=== PATIENT | male | born 1935 | race Caucasian/White ===

== ENCOUNTER 2018-09-21 12:48 | Emergency (ER) | payer MEDICARE ==
[2018-09-21 13:09] VITALS: RESP 18
[2018-09-21 13:59] LABS: Basophils % (A) 0 %; Eosinophils # (A) 0.3 k/uL (0-0.7); Eosinophils % (A) 3 %; HCT 38.8 % (39.0-53.0); HGB 13.1 gm/dL (13.0-17.5); Lymphocytes # (A) 1.7 k/uL (1.0-4.8); Lymphocytes % (A) 19 %; MCH 30.1 pg (25.0-35.0); MCHC 33.7 g/dL (31.0-37.0); MCV 89.3 fL (80.0-100.0); Mean Platelet Volume 8.4; Monocytes # (A) 0.7 k/uL (0-1.0); Monocytes % (A) 8 %; Neutrophils # (A) 6.2 k/uL (1.3-7.7); Neutrophils % (A) 68 %; Platelet Count 177 k/uL (150-450); RBC 4.35 m/uL (4.30-5.90); RDW 14.1 % (11.5-15.5); WBC 9.1 k/uL (3.8-10.6)
[2018-09-21 14:06] LABS: Albumin 4.2 g/dL (3.5-5.0); Calcium 9.2 mg/dL (8.4-10.2); Potassium 3.7 mmol/L (3.5-5.1); Total Bilirubin 0.9 mg/dL (0.2-1.3); Total Protein 7.5 g/dL (6.3-8.2)
--- NOTE | 2018-09-21 14:26 | XR ---
EXAMINATION TYPE: XR lumbar spine 2 or 3V DATE OF EXAM: 09/21/2018 CLINICAL HISTORY: Back pain TECHNIQUE: Frontal and lateral images of the lumbar spine are obtained. COMPARISON: None FINDINGS: There is a levoscoliosis of the lumbar spine and moderate multilevel degenerative disc dise ase with diffuse osseous demineralization seen. Intervertebral disc space narrowing is seen at multip le levels with facet arthropathy and small anterior osteophytes. Neural foraminal narrowing is suspec emily at L4-L5 and L5-S1. Additionally there is a compression deformity of the T12 vertebral body in qu estion rib fracture of approximately rib 11 on the left. IMPRESSION: 1. Age indeterminant compression deformity of the T12 vertebral body with vertebral body loss of appr oximately 20%. 2. Questionable acute nondisplaced rib fracture of a rib on the lateral view, likely the 11th rib on the left. This could be further evaluated with rib series x-rays. 3. Moderate degenerative disc disease of the lumbar spine, levoscoliosis, and diffuse osseous deminer alization.
[2018-09-21 15:41] LABS: Appearance,Urine Turbid (Clear); Bilirubin,Urine Negative (Negative); Blood,Urine Trace (Negative); Color,Urine Yellow; Glucose,Urine (UA) Negative (Negative); Ketones,Urine Negative (Negative); Leukocyte Esterase,Urine Large (Negative); Nitrite,Urine Negative (Negative); Protein,Urine 1+ (Negative); RBC,Urine 55 /hpf (0-5); Urobilinogen,Urine <2.0 mg/dL (<2.0)
[2018-09-21] MEDS ORDERED: cefTRIAXone IN SWFI 1,000 MG/10 ML SYRINGE IVP STA (15:50)
--- NOTE | 2018-09-21 16:01 | ED ---
General Adult HPI - General Chief complaint: Extremity Problem,Nontraumatic Stated complaint: RT HIP AND BACK PAIN Time Seen by Provider: 09/21/18 13:13 Source: patient Mode of arrival: wheelchair Limitations: no limitations - History of Present Illness Initial comments: Patient is a 82-year-old male presenting to the emergency Department with complaints of right low back pain radiating into his right upper leg x 3 days. Patient denies any falls or trauma. Patient states he has been trouble getting from a seated to a standing position. Patient usually walks with a walker and is having increasing pain walking. Patient denies any numbness, tingling, saddle paresthesias. Patient's daughter states he has had issues with his kidneys in the past and she is worried about a kidney infection. Patient is denying any urinary symptoms at this time. Patient denies any fever, chills. No other complaints at this time. - Related Data Home Medications Medication Instructions Recorded Confirmed Aspirin EC [Ecotrin Low Dose] 81 mg PO DAILY 09/21/18 09/21/18 Cyanocobalamin (Vitamin B-12) 1,000 mcg PO DAILY 09/21/18 09/21/18 [Vitamin B-12] Multivitamins, Thera [Multivitamin 1 tab PO DAILY 09/21/18 09/21/18 (formulary)] Previous Rx's Medication Instructions Recorded Cephalexin [Keflex] 500 mg PO Q6HR 7 Days #28 cap 09/21/18 Allergies Allergy/AdvReac Type Severity Reaction Status Date / Time No Known Allergies Allergy Verified 09/21/18 14:00 Review of Systems ROS Statement: Those systems with pertinent positive or pertinent negative responses have been documented in the HPI. ROS Other: All systems not noted in ROS Statement are negative. Past Medical History Past Medical History: Hypertension History of Any Multi-Drug Resistant Organisms: None Reported Past Surgical History: Appendectomy Past Psychological History: No Psychological Hx Reported Smoking Status: Never smoker Past Alcohol Use History: None Reported Past Drug Use History: None Reported General Exam - General Exam Comments Initial Comments: GENERAL: Well-appearing, well-nourished and in no acute distress. HEAD: Atraumatic, normocephalic. EYES: Pupils equal round and reactive to light, extraocular movements intact, sclera anicteric, conjunctiva are normal. ENT: TMs normal, nares patent, oropharynx clear without exudates. Moist mucous membranes. NECK: Normal range of motion, supple without lymphadenopathy or JVD. LUNGS: Breath sounds clear to auscultation bilaterally and equal. No wheezes rales or rhonchi. HEART: Regular rate and rhythm without murmurs, rubs or gallops. ABDOMEN: Soft, nontender, normoactive bowel sounds. No guarding, no rebound. No masses appreciated. : Deferred EXTREMITIES: Normal range of motion, no pitting or edema. No clubbing or cyanosis. Patient has tenderness in the right lumbar paraspinals. Patient has full trunk range of motion. Patient sensation is equal bilateral. Strength is 5 out of 5 in upper and lower extremities. NEUROLOGICAL: Cranial nerves II through XII grossly intact. Normal speech, normal gait. PSYCH: Normal mood, normal affect. SKIN: Warm, Dry, normal turgor, no rashes or lesions noted. Limitations: no limitations Course Vital Signs 09/21/18 13:05 Temperature 98.1 F Pulse Rate 78 Respiratory 18 Rate Blood Pressure 105/71 O2 Sat by Pulse 95 Oximetry Medical Decision Making - Medical Decision Making Patient is a 82-year-old male with complaints of right sided low back pain radiating into his right upper leg. Patient denies any trauma to the back of the hip. On exam patient has mild tenderness to the right lumbar paraspinals. Patient's vital signs are stable, afebrile. X-ray of the lumbar spine reveal age indeterminate compression deformity of the T12 vertebral body with loss of approximately 20%. There is a questionable acute rib fracture on the left 11th rib. Patient's daughter states patient has history of rib fractures on the left side a few months ago. CBC shows no signs of infection. BUN/creatinine are slightly elevated at 31 and 2.06. UA shows 1+ protein, trace amount of blood, greater than 182 WBCs. Patient will be given a gram of Rocephin before discharge. Patient will be sent home with Keflex 7 days. It was discussed with patient has back pain may be related to his UTI and/or right-sided sciatica. Patient will follow up with his PCP and 3-4 days. Case discussed with Dr. Robertson. Return parameters were discussed with the patient and his daughter and they both verbalize understanding. Patient stable for discharge. - Lab Data Result diagrams: 09/21/18 13:35 09/21/18 13:35 Lab Results 09/21/18 09/21/18 09/21/18 Range/Units 13:35 13:35 15:22 WBC 9.1 (3.8-10.6) k/uL RBC 4.35 (4.30-5.90) m/uL Hgb 13.1 (13.0-17.5) gm/dL Hct 38.8 L (39.0-53.0) % MCV 89.3 (80.0-100.0) fL MCH 30.1 (25.0-35.0) pg MCHC 33.7 (31.0-37.0) g/dL RDW 14.1 (11.5-15.5) % Plt Count 177 (150-450) k/uL Neutrophils % 68 % Lymphocytes % 19 % Monocytes % 8 % Eosinophils % 3 % Basophils % 0 % Neutrophils # 6.2 (1.3-7.7) k/uL Lymphocytes # 1.7 (1.0-4.8) k/uL Monocytes # 0.7 (0-1.0) k/uL Eosinophils # 0.3 (0-0.7) k/uL Basophils # 0.0 (0-0.2) k/uL Sodium 140 (137-145) mmol/L Potassium 3.7 (3.5-5.1) mmol/L Chloride 107 (98-107) mmol/L Carbon Dioxide 22 (22-30) mmol/L Anion Gap 11 mmol/L BUN 31 H (9-20) mg/dL Creatinine 2.06 H (0.66-1.25) mg/dL Est GFR (CKD-EPI)AfAm 34 (>60 ml/min/1.73 sqM) Est GFR (CKD-EPI)NonAf 29 (>60 ml/min/1.73 sqM) Glucose 126 H (74-99) mg/dL Calcium 9.2 (8.4-10.2) mg/dL Total Bilirubin 0.9 (0.2-1.3) mg/dL AST 25 (17-59) U/L ALT 21 (21-72) U/L Alkaline Phosphatase 43 (38-126) U/L Total Protein 7.5 (6.3-8.2) g/dL Albumin 4.2 (3.5-5.0) g/dL Urine Color Yellow Urine Appearance Turbid (Clear) Urine pH 6.0 (5.0-8.0) Ur Specific [place] 1.020 (1.001-1.035) Urine Protein 1+ H (Negative) Urine Glucose (UA) Negative (Negative) Urine Ketones Negative (Negative) Urine Blood Trace H (Negative) Urine Nitrite Negative (Negative) Urine Bilirubin Negative (Negative) Urine Urobilinogen <2.0 (<2.0) mg/dL Ur Leukocyte Esterase Large H (Negative) Urine RBC 55 H (0-5) /hpf Urine WBC >182 H (0-5) /hpf Urine WBC Clumps Occasional H (None) /hpf Disposition Clinical Impression: Low back pain, Urinary tract infection Disposition: HOME SELF-CARE Condition: Stable Instructions (If sedation given, give patient instructions): Urinary Tract Infection in Men (ED) Additional Instructions: Please return to the Emergency Department if symptoms worsen or any other concerns. Follow up with PCP if symptoms continue for 3-4 days. Prescriptions: Cephalexin [Keflex] 500 mg PO Q6HR 7 Days #28 cap Is patient prescribed a controlled substance at d/c from ED?: No Referrals: Maia Riley DO [Primary Care Provider] - 1-2 days
[2018-09-21 16:31] VITALS: BP 120/90; PULSE 65; TEMP 97.9
== END 2018-09-21 16:31 | disposition home or self-care (01) ==
LOC: EC 12:48
DX: N39.0 Urinary tract infection, site not specified (principal); M48.8X4 Other specified spondylopathies, thoracic region; R79.89 Other specified abnormal findings of blood chemistry; M54.5 Low back pain; M79.651 Pain in right thigh; Z87.81 Personal history of (healed) traumatic fracture
CPT/HCPCS: 36415; 80053; 85025; 81001; 87086; 72100; 99283; 96374; J0696

== ENCOUNTER 2018-09-27 01:23 | Inpatient (IN) | payer MEDICARE ==
[2018-09-27] MEDS ORDERED: MORPHINE SULFATE 4 MG/ML SYRINGE IV STA (01:53)
[2018-09-27 02:32] LABS: Basophils % (A) 0 %; Eosinophils # (A) 0.2 k/uL (0-0.7); Eosinophils % (A) 2 %; HCT 37.3 % (39.0-53.0); HGB 12.5 gm/dL (13.0-17.5); Lymphocytes # (A) 1.4 k/uL (1.0-4.8); Lymphocytes % (A) 12 %; MCH 30.5 pg (25.0-35.0); MCHC 33.6 g/dL (31.0-37.0); MCV 90.7 fL (80.0-100.0); Mean Platelet Volume 8.2; Monocytes # (A) 0.6 k/uL (0-1.0); Monocytes % (A) 5 %; Neutrophils # (A) 9.9 k/uL (1.3-7.7); Neutrophils % (A) 80 %; Platelet Count 165 k/uL (150-450); RBC 4.11 m/uL (4.30-5.90); WBC 12.4 k/uL (3.8-10.6)
[2018-09-27 02:39] LABS: C Reactive Protein 24.6 mg/L (<10.0); Potassium 3.8 mmol/L (3.5-5.1); Total Bilirubin 0.7 mg/dL (0.2-1.3); Total Protein 7.3 g/dL (6.3-8.2)
--- NOTE | 2018-09-27 02:41 | XR ---
EXAM: XR Right Femur, 2 Views CLINICAL HISTORY: ITS.REASON XR Reason: Pain TECHNIQUE: Frontal and lateral views of the right femur. COMPARISON: No relevant prior studies available. FINDINGS: Bones/joints: Osteopenia. No fracture. No dislocation. Soft tissues: Unremarkable. IMPRESSION: No fracture.
--- NOTE | 2018-09-27 02:41 | XR ---
EXAM: XR Pelvis, 1 or 2 Views CLINICAL HISTORY: ITS.REASON XR Reason: Pain TECHNIQUE: Frontal view of the pelvis and right hip. COMPARISON: No relevant prior studies available. FINDINGS: Bones/joints: Osteopenia. No acute fracture. No dislocation. Soft tissues: Unremarkable. IMPRESSION: No fracture
[2018-09-27] MEDS ORDERED: NALOXONE 0.4 MG/ML 1 ML VIAL IV PRN (04:02)
[2018-09-27] MEDS ORDERED: ACETAMINOPHEN TAB 325 MG TAB PO PRN (04:02)
--- NOTE | 2018-09-27 04:07 | ED ---
Lower Extremity Injury HPI - General Chief Complaint: Extremity Injury, Lower Stated Complaint: fall,hip pain Time Seen by Provider: 09/27/18 01:26 Source: EMS Mode of arrival: EMS Limitations: physical limitation - History of Present Illness Initial Comments: This patient is an 82-year-old man who presents to be evaluate for right low back pain radiating to his leg, especially the hip area. The patient states that he has had a few falls over the past week or so. He states that now over the past day he has not been able to walk. He denies change in bladder or bowel function. No saddle anesthesia. MD Complaint: hip injury -: hour(s) Injury: Hip: Right Type of Injury: blunt Place: home Severity: severe Improves With: nothing Worsens With: weight bearing Context: fall Associated Symptoms: able to partially bear weight - Related Data Home Medications Medication Instructions Recorded Confirmed Aspirin EC [Ecotrin Low Dose] 81 mg PO DAILY 09/21/18 09/21/18 Cyanocobalamin (Vitamin B-12) 1,000 mcg PO DAILY 09/21/18 09/21/18 [Vitamin B-12] Multivitamins, Thera [Multivitamin 1 tab PO DAILY 09/21/18 09/21/18 (formulary)] Previous Rx's Medication Instructions Recorded Cephalexin [Keflex] 500 mg PO Q6HR 7 Days #28 cap 09/21/18 Allergies Allergy/AdvReac Type Severity Reaction Status Date / Time No Known Allergies Allergy Verified 09/21/18 14:00 Review of Systems ROS Statement: Those systems with pertinent positive or pertinent negative responses have been documented in the HPI. ROS Other: All systems not noted in ROS Statement are negative. Constitutional: Reports: weakness. Denies: fever, chills Respiratory: Denies: cough, dyspnea Cardiovascular: Denies: chest pain, palpitations, edema Gastrointestinal: Denies: abdominal pain, vomiting, diarrhea Genitourinary: Denies: dysuria, hematuria Musculoskeletal: Reports: as per HPI, back pain, arthralgia Skin: Denies: rash Neurological: Reports: weakness. Denies: headache, numbness, paresthesias Past Medical History Past Medical History: Hypertension History of Any Multi-Drug Resistant Organisms: None Reported Past Surgical History: Appendectomy Past Psychological History: No Psychological Hx Reported Smoking Status: Never smoker Past Alcohol Use History: None Reported Past Drug Use History: None Reported - Past Family History Father Family Medical History: No Reported History Additional Family Medical History / Comment(s): young in 50's General Exam Limitations: physical limitation General appearance: alert, in no apparent distress Head exam: Present: atraumatic, normocephalic Eye exam: Present: normal appearance. Absent: scleral icterus, conjunctival injection Respiratory exam: Present: normal lung sounds bilaterally. Absent: respiratory distress, wheezes, rales, rhonchi, stridor Cardiovascular Exam: Present: regular rate, normal rhythm, normal heart sounds GI/Abdominal exam: Present: soft. Absent: distended, tenderness, guarding, rebound, rigid, mass Extremities exam: Present: normal inspection, normal capillary refill. Absent: tenderness, pedal edema, joint swelling, calf tenderness Back exam: Present: normal inspection, paraspinal tenderness. Absent: CVA tenderness (R), CVA tenderness (L), vertebral tenderness Neurological exam: Present: alert. Absent: motor sensory deficit Skin exam: Present: warm, dry, intact, normal color. Absent: rash Course Vital Signs 09/27/18 09/27/18 01:24 04:24 Temperature 97.5 F L 97.9 F Pulse Rate 74 73 Respiratory 18 18 Rate Blood Pressure 162/99 115/70 O2 Sat by Pulse 96 97 Oximetry Medical Decision Making - Medical Decision Making This patient is an 82-year-old man with a right hip and leg pain most consistent with radiculopathy. He has had moderate relief with analgesia but not able to ambulate. In addition, there are concerns about his home situation. Patient be admitted for possible placement. As well as spinal evaluation. - Lab Data Result diagrams: 09/27/18 02:20 09/27/18 02:20 Lab Results 09/27/18 09/27/18 Range/Units 02:20 02:20 WBC 12.4 H (3.8-10.6) k/uL RBC 4.11 L (4.30-5.90) m/uL Hgb 12.5 L (13.0-17.5) gm/dL Hct 37.3 L (39.0-53.0) % MCV 90.7 (80.0-100.0) fL MCH 30.5 (25.0-35.0) pg MCHC 33.6 (31.0-37.0) g/dL RDW 16.0 H (11.5-15.5) % Plt Count 165 (150-450) k/uL Neutrophils % 80 % Lymphocytes % 12 % Monocytes % 5 % Eosinophils % 2 % Basophils % 0 % Neutrophils # 9.9 H (1.3-7.7) k/uL Lymphocytes # 1.4 (1.0-4.8) k/uL Monocytes # 0.6 (0-1.0) k/uL Eosinophils # 0.2 (0-0.7) k/uL Basophils # 0.0 (0-0.2) k/uL Sodium 142 (137-145) mmol/L Potassium 3.8 (3.5-5.1) mmol/L Chloride 109 H (98-107) mmol/L Carbon Dioxide 23 (22-30) mmol/L Anion Gap 10 mmol/L BUN 24 H (9-20) mg/dL Creatinine 1.42 H (0.66-1.25) mg/dL Est GFR (CKD-EPI)AfAm 53 (>60 ml/min/1.73 sqM) Est GFR (CKD-EPI)NonAf 46 (>60 ml/min/1.73 sqM) Glucose 93 (74-99) mg/dL Calcium 9.0 (8.4-10.2) mg/dL Total Bilirubin 0.7 (0.2-1.3) mg/dL AST 35 (17-59) U/L ALT 23 (21-72) U/L Alkaline Phosphatase 46 (38-126) U/L C-Reactive Protein 24.6 H (<10.0) mg/L Total Protein 7.3 (6.3-8.2) g/dL Albumin 4.0 (3.5-5.0) g/dL Disposition Clinical Impression: Lumbar radiculopathy Disposition: ADMITTED IP TO THIS HOSP Condition: Fair
[2018-09-27] MEDS: SODIUM CHLORIDE 0.9% 1,000 ML IV SCH (04:54)
[2018-09-27] MEDS: HYDROcodone/APAP 5-325MG 1 EACH TAB PO PRN ×2 (05:21→17:39)
[2018-09-27] MEDS: MULTIVITAMINS, THERA 1 EACH TAB PO SCH (10:22)
[2018-09-27] MEDS: ASPIRIN 81 MG PO SCH (10:23)
[2018-09-27] MEDS: CYANOCOBALAMIN 500 MCG TAB PO SCH (10:23)
[2018-09-27 15:06] VITALS: BMI 21.6
[2018-09-27] MEDS ORDERED: LEVOFLOXACIN 750MG-D5W PMX 750 MG in DEXTROSE/WATER 1 150ML.BAG IVPB SCH (16:00)
--- NOTE | 2018-09-27 21:21 | P.HPIM ---
History of Present Illness H&P Date: 09/27/18 Atif Moreno is an 82 yo M with PMH significant for spinal stenosis, osteoporosis, recurrent falls, CKD3, prostate cancer s/p TURP who presented to [facility] ED after a fall at home. He states he was transferring from his walker when he lost balance and fell backward, landing on his pelvis and R hip. He had to crawl for a few mins to his alert device and then was able to contact EMS. In the ED, vitals stable, leukocytosis to 12.4 with CRP 24 and Cr 1.5. Pt notes that at baseline he lives alone in a trailer, his is currently at [facility]. Daughters visit and he showers at a daughter's house approx once per week. He was being treated for a UTI with keflex outpatient. He denies fevers, chills, dysuria. Was seen in the ED for a fall at home just a few weeks ago. Review of Systems All systems: negative Constitutional: Reports lethargy, Reports malaise, Reports weakness, Denies chills, Denies fever Eyes: denies blurred vision, denies pain Ears, nose, mouth and throat: Denies headache, Denies sore throat Cardiovascular: Denies chest pain, Denies shortness of breath Respiratory: Denies cough Gastrointestinal: Denies abdominal pain, Denies diarrhea, Denies nausea, Denies vomiting Musculoskeletal: Reports frequent falls, Reports gait dysfunction, Reports muscle weakness, Denies myalgias Integumentary: Denies pruritus, Denies rash Neurological: Denies numbness, Denies weakness Psychiatric: Denies anxiety, Denies depression Endocrine: Reports fatigue, Denies weight change Past Medical History Past Medical History: Hypertension Additional Past Medical History / Comment(s): Falls, liu lateral broken ribs History of Any Multi-Drug Resistant Organisms: None Reported Past Surgical History: Appendectomy Past Anesthesia/Blood Transfusion Reactions: No Reported Reaction Past Psychological History: No Psychological Hx Reported Smoking Status: Never smoker Past Alcohol Use History: None Reported Past Drug Use History: None Reported - Past Family History Father Family Medical History: No Reported History Additional Family Medical History / Comment(s): young in 50's Medications and Allergies Home Medications Medication Instructions Recorded Confirmed Type Aspirin EC [Ecotrin Low Dose] 81 mg PO DAILY 09/21/18 09/27/18 History Cephalexin [Keflex] 500 mg PO Q6HR 7 Days #28 cap 09/21/18 09/27/18 Rx Cyanocobalamin (Vitamin B-12) 1,000 mcg PO DAILY 09/21/18 09/27/18 History [Vitamin B-12] Multivitamins, Thera [Multivitamin 1 tab PO DAILY 09/21/18 09/27/18 History (formulary)] Metoprolol Tartrate [Lopressor] 12.5 mg PO HS 09/27/18 09/27/18 History Tamsulosin HCl [Flomax] 0.4 mg PO DAILY 09/27/18 09/27/18 History Allergies Allergy/AdvReac Type Severity Reaction Status Date / Time No Known Allergies Allergy Verified 09/27/18 07:32 Physical Exam Vitals: Vital Signs Temp Pulse Pulse Resp BP BP Pulse Ox 09/27/18 15:00 98 F 86 16 99/65 93 L 09/27/18 07:00 98 F 78 14 96/66 95 09/27/18 05:19 97.6 F 73 16 125/79 93 L 09/27/18 04:24 97.9 F 73 18 115/70 97 09/27/18 01:24 97.5 F L 74 18 162/99 96 Intake and Output 09/27/18 09/27/18 09/27/18 06:59 14:59 22:59 Intake Total 100 694 Balance 100 694 Intake: Oral 100 694 Other: Weight 55.338 kg 55.338 kg General: thin, cachectic, NAD. Vitals reviewed Eyes: PERRL, EOMI, conjunctiva normal HENT: normocephalic, mucus membranes moist Neck: supple, no JVD Lungs: normal respiratory effort, no wheezes or rales CV: Regular rate and rhythm, no murmur. Peripheral pulses 2+ Abdomen: soft, nondistended, no organomegaly Lymph: no cervical or axillary LAD Skin: warm and dry. Bruising around bilateral arms Neuro: A&Ox3, normal mood and affect Results CBC & Chem 7: 09/27/18 02:20 09/27/18 02:20 Labs: Abnormal Lab Results - Last 24 Hours (Table) 09/27/18 09/27/18 Range/Units 02:20 02:20 WBC 12.4 H (3.8-10.6) k/uL RBC 4.11 L (4.30-5.90) m/uL Hgb 12.5 L (13.0-17.5) gm/dL Hct 37.3 L (39.0-53.0) % RDW 16.0 H (11.5-15.5) % Neutrophils # 9.9 H (1.3-7.7) k/uL Chloride 109 H (98-107) mmol/L BUN 24 H (9-20) mg/dL Creatinine 1.42 H (0.66-1.25) mg/dL C-Reactive Protein 24.6 H (<10.0) mg/L Thrombosis Risk Factor Assmnt - Choose All That Apply Each Risk Factor Represents 2 Points: Age 61-74 years Thrombosis Risk Factor Assessment Total Risk Factor Score: 2 Thrombosis Risk Factor Assessment Level: Low Risk Assessment and Plan (1) Sepsis due to urinary tract infection Current Visit: Yes Status: Acute Code(s): A41.9 - SEPSIS, UNSPECIFIED ORGANISM; N39.0 - URINARY TRACT INFECTION, SITE NOT SPECIFIED SNOMED Code(s): 540421171 (2) Protein-calorie malnutrition, moderate Current Visit: Yes Status: Acute Code(s): E44.0 - MODERATE PROTEIN-CALORIE MALNUTRITION SNOMED Code(s): 958066889 (3) Frequent falls Current Visit: Yes Status: Acute Code(s): R29.6 - REPEATED FALLS SNOMED Code(s): 197642998 (4) S/P TURP (transurethral resection of prostate) Current Visit: Yes Status: Acute Code(s): Z90.79 - ACQUIRED ABSENCE OF OTHER GENITAL ORGAN(S) SNOMED Code(s): 110528136 (5) Lumbar radiculopathy Current Visit: Yes Status: Acute Code(s): M54.16 - RADICULOPATHY, LUMBAR REGION SNOMED Code(s): 848042152 (6) Low back pain Current Visit: No Status: Acute Code(s): M54.5 - LOW BACK PAIN SNOMED Code(s): 433863392 Plan: 1. Sepsis due to UTI. SIRS 2/4 positive on admission with failed outpatient treatment of UTI with keflex. Outpatient urine culture positive for pseudomonas. Blood and urine cultures. Start levaquin. Daily labs 2. Frequent falls. Lumbar radiculopathy. PT and OT to eval. Case management to assist with discharge planning 3. Protein calorie malnutritions. Ensure 4. S/p TURP. Continue flomax DVT prophylaxis lovenox
[2018-09-27] MEDS ORDERED: ONDANSETRON 4 MG/2 ML VIAL IVP PRN (21:59)
[2018-09-28] MEDS: SODIUM CHLORIDE 0.9% 1,000 ML IV SCH (05:16)
[2018-09-28] MEDS: ENOXAPARIN 40 MG/0.4 ML SYRINGE SQ SCH (10:18)
[2018-09-28] MEDS: TAMSULOSIN 0.4 MG CAP.ER.24H PO SCH (10:20)
[2018-09-28] MEDS: ASPIRIN 81 MG PO SCH (10:20)
[2018-09-28] MEDS: MULTIVITAMINS, THERA 1 EACH TAB PO SCH (10:20)
[2018-09-28] MEDS: CYANOCOBALAMIN 500 MCG TAB PO SCH (10:21)
--- NOTE | 2018-09-28 13:07 | P.PN ---
Subjective Progress Note Date: 09/28/18 Atif Moreno is an 82 yo M with PMH significant for spinal stenosis, osteoporosis, recurrent falls, CKD3, prostate cancer s/p TURP who presented to [facility] ED after a fall at home. He states he was transferring from his walker when he lost balance and fell backward, landing on his pelvis and R hip. He had to crawl for a few mins to his alert device and then was able to contact EMS. In the ED, vitals stable, leukocytosis to 12.4 with CRP 24 and Cr 1.5. Pt notes that at baseline he lives alone in a trailer, his is currently at [facility]. Daughters visit and he showers at a daughter's house approx once per week. He was being treated for a UTI with keflex outpatient. He denies fevers, chills, dysuria. Was seen in the ED for a fall at home just a few weeks ago. 09/28/2018 maintained on IV antibiotics of Levaquin. afebrile, preliminary urine and blood cultures pending. Voided 100ml, post void residual 360. Labs pending. Evaluated by PT and subacute rehab recommended at discharge.VSS, maintaining O2 sats in the mid 90s on room air. Denies any chest pain, palpitations or increased shortness of breath. Denies any lightheadedness, dizziness or focal deficits. Objective - Vital Signs Vital signs: Vital Signs Temp 98.5 F 09/28/18 07:00 Pulse 69 09/28/18 08:30 Resp 16 09/28/18 08:30 BP 123/71 09/28/18 07:00 Pulse Ox 94 L 09/28/18 07:00 Intake & Output 09/27/18 09/28/18 09/28/18 18:59 06:59 18:59 Intake Total 694 440 236 Output Total 250 Balance 694 190 236 Weight 55.338 kg Intake: Intake, IV Titration 240 Amount Sodium Chloride 0.9% 1, 240 000 ml @ 20 mls/hr IV . Q24H [facility] Rx#:[id number] Oral 694 200 236 Output: Urine 250 Other: Voiding Method Urinal Urinal Diaper Diaper # Voids 2 1 - Exam General: thin, cachectic, NAD. Eyes: PERRL, EOMI, conjunctiva normal. HENT: normocephalic, mucus membranes moist Neck: supple, no JVD Lungs: normal respiratory effort, no wheezes or rales, no rhonchi CV: Regular rate and rhythm, no murmur. Peripheral pulses 2+ Abdomen: soft, nondistended, no organomegaly Lymph: no cervical or axillary LAD Skin: warm and dry. Bruising around bilateral arms Neuro: A&Ox3, normal mood and affect - Labs CBC & Chem 7: 09/27/18 02:20 09/27/18 02:20 Labs: Microbiology - Last 24 Hours (Table) 09/27/18 Unknown Urine Culture - Preliminary Urine,Voided Assessment and Plan Assessment: (1) Sepsis due to urinary tract infection Current Visit: Yes Status: Acute Code(s): A41.9 - SEPSIS, UNSPECIFIED ORGANISM; N39.0 - URINARY TRACT INFECTION, SITE NOT SPECIFIED SNOMED Code(s): 525268770 (2) Protein-calorie malnutrition, moderate Current Visit: Yes Status: Acute Code(s): E44.0 - MODERATE PROTEIN-CALORIE MALNUTRITION SNOMED Code(s): 549423127 (3) Frequent falls Current Visit: Yes Status: Acute Code(s): R29.6 - REPEATED FALLS SNOMED Code(s): 014377677 (4) S/P TURP (transurethral resection of prostate) Current Visit: Yes Status: Acute Code(s): Z90.79 - ACQUIRED ABSENCE OF OTHER GENITAL ORGAN(S) SNOMED Code(s): 862419777 (5) Lumbar radiculopathy Current Visit: Yes Status: Acute Code(s): M54.16 - RADICULOPATHY, LUMBAR REGION SNOMED Code(s): 555330193 (6) Low back pain Current Visit: No Status: Acute Code(s): M54.5 - LOW BACK PAIN SNOMED Code(s): 262496366 (7 urinary retention possibly acute on chronic. Outpatient urology follow-up recommended Plan: Continue on current medication regime ,monitoring and symptomatic treatment. Flomax added to med regime, post void residuals after each void, straight cath ordered. Labs pending. Maintained on IV antibiotics of Levaquin. Continue following cultures-blood in urine culture results pending. Change from observation to inpatient. Subacute rehab. being discussed for discharge with both patient and daughters. The impression and plan of care has been dictated as directed. : I performed a history and examination of this patient, discussed the same with the dictator. I agree with the dictator's note ,documented as a scribe. Any additional findings or plans will be noted.
[2018-09-28] MEDS ORDERED: TAMSULOSIN 0.4 MG CAP.ER.24H PO SCH (13:15)
[2018-09-28 13:38] LABS: Calcium 8.7 mg/dL (8.4-10.2); Potassium 4.6 mmol/L (3.5-5.1)
[2018-09-28 13:39] LABS: HCT 34.3 % (39.0-53.0); HGB 11.4 gm/dL (13.0-17.5); MCH 30.7 pg (25.0-35.0); MCHC 33.3 g/dL (31.0-37.0); MCV 92.4 fL (80.0-100.0); Mean Platelet Volume 8.1; Platelet Count 160 k/uL (150-450); RBC 3.71 m/uL (4.30-5.90); RDW 14.4 % (11.5-15.5); WBC 9.4 k/uL (3.8-10.6)
--- NOTE | 2018-09-28 14:59 | P.GSCN ---
History of Present Illness Consult date: 09/28/18 Reason for Consult: Urine retention History of present illness: This is an 82-year-old gentleman who came in the hospital because of falling. Because of the fall is due to aging, imbalance, osteoporosis and spinal stenosis. Apparently he has had some difficulty urinating and he was bladder scanned for 365 mL post void. Nursing staff attempted to catheterize him and were unable to do so. He is a patient of . He apparently has BPH. Apparently had a TURP over a year ago. He has been having some problems urinating the last month however. He states that he has had frequent urination hesitancy and slowing stream. Whether he has a bladder neck contracture or urethral strictures indeterminate. The pathology of the biopsy is also unknown to me. In see the patient and absence . Review of Systems - Constitutional Reports weakness - Genitourinary Reports as per HPI - Musculoskeletal Reports frequent falls, Reports gait dysfunction, Reports low back pain Past Medical History Past Medical History: Hypertension Additional Past Medical History / Comment(s): Falls, liu lateral broken ribs History of Any Multi-Drug Resistant Organisms: None Reported Past Surgical History: Appendectomy Past Anesthesia/Blood Transfusion Reactions: No Reported Reaction Past Psychological History: No Psychological Hx Reported Smoking Status: Never smoker Past Alcohol Use History: None Reported Past Drug Use History: None Reported - Past Family History Father Family Medical History: No Reported History Additional Family Medical History / Comment(s): young in 50's Medications and Allergies Home Medications Medication Instructions Recorded Confirmed Type Aspirin EC [Ecotrin Low Dose] 81 mg PO DAILY 09/21/18 09/27/18 History Cephalexin [Keflex] 500 mg PO Q6HR 7 Days #28 cap 09/21/18 09/27/18 Rx Cyanocobalamin (Vitamin B-12) 1,000 mcg PO DAILY 09/21/18 09/27/18 History [Vitamin B-12] Multivitamins, Thera [Multivitamin 1 tab PO DAILY 09/21/18 09/27/18 History (formulary)] Metoprolol Tartrate [Lopressor] 12.5 mg PO HS 09/27/18 09/27/18 History Tamsulosin HCl [Flomax] 0.4 mg PO DAILY 09/27/18 09/27/18 History Allergies Allergy/AdvReac Type Severity Reaction Status Date / Time No Known Allergies Allergy Verified 09/27/18 07:32 Surgical - Exam Vital Signs Temp Pulse Resp BP Pulse Ox 97.5 F L 74 18 162/99 96 09/27/18 01:24 09/27/18 01:24 09/27/18 01:24 09/27/18 01:24 09/27/18 01:24 - General well developed, well nourished, no distress - Eyes PERRL - ENT no hearing loss - Neck trachea midline - Respiratory normal expansion, normal respiratory effort - Cardiovascular Rhythm: regular - Abdomen Abdomen: soft, non tender - Genitourinary normal penis with no external lesions, testicles present - Integumentary no rash, no growths - Neurologic normal coordination, normal sensation - Musculoskeletal normal posture - Psychiatric oriented to time, oriented to person, oriented to place, speech is normal, memory intact Results - Labs 09/28/18 13:06 09/28/18 13:06 Abnormal Lab Results - Last 24 Hours (Table) 09/28/18 09/28/18 Range/Units 13:06 13:06 RBC 3.71 L (4.30-5.90) m/uL Hgb 11.4 L (13.0-17.5) gm/dL Hct 34.3 L (39.0-53.0) % BUN 26 H (9-20) mg/dL Creatinine 1.45 H (0.66-1.25) mg/dL Microbiology - Last 24 Hours (Table) 09/27/18 Unknown Urine Culture - Preliminary Urine,Voided Diabetes panel 09/28/18 Range/Units 13:06 Sodium 138 (137-145) mmol/L Potassium 4.6 (3.5-5.1) mmol/L Chloride 107 (98-107) mmol/L Carbon Dioxide 27 (22-30) mmol/L BUN 26 H (9-20) mg/dL Creatinine 1.45 H (0.66-1.25) mg/dL Glucose 90 (74-99) mg/dL Calcium 8.7 (8.4-10.2) mg/dL Calcium panel 09/28/18 Range/Units 13:06 Calcium 8.7 (8.4-10.2) mg/dL Pituitary panel 09/28/18 Range/Units 13:06 Sodium 138 (137-145) mmol/L Potassium 4.6 (3.5-5.1) mmol/L Chloride 107 (98-107) mmol/L Carbon Dioxide 27 (22-30) mmol/L BUN 26 H (9-20) mg/dL Creatinine 1.45 H (0.66-1.25) mg/dL Glucose 90 (74-99) mg/dL Calcium 8.7 (8.4-10.2) mg/dL Adrenal panel 09/28/18 Range/Units 13:06 Sodium 138 (137-145) mmol/L Potassium 4.6 (3.5-5.1) mmol/L Chloride 107 (98-107) mmol/L Carbon Dioxide 27 (22-30) mmol/L BUN 26 H (9-20) mg/dL Creatinine 1.45 H (0.66-1.25) mg/dL Glucose 90 (74-99) mg/dL Calcium 8.7 (8.4-10.2) mg/dL Assessment and Plan Assessment: Impression: Incomplete bladder emptying. Inability to pass a catheter. History of TURP. Recommendations: I will have the patient attempt to void one more time. He had a residual 365 mL an hour ago. If he is unable to void I'll attempt to catheterize him.
[2018-09-28] MEDS: HYDROcodone/APAP 5-325MG 1 EACH TAB PO PRN (16:07)
[2018-09-28] MEDS: METOPROLOL TARTRATE 25 MG TAB PO SCH (20:50)
[2018-09-29] MEDS: SODIUM CHLORIDE 0.9% 1,000 ML IV SCH (05:46)
[2018-09-29] MEDS: ASPIRIN 81 MG PO SCH (07:21)
[2018-09-29] MEDS: MULTIVITAMINS, THERA 1 EACH TAB PO SCH (07:21)
[2018-09-29] MEDS: TAMSULOSIN 0.4 MG CAP.ER.24H PO SCH (07:21)
[2018-09-29] MEDS: CYANOCOBALAMIN 500 MCG TAB PO SCH (07:22)
[2018-09-29] MEDS: ENOXAPARIN 40 MG/0.4 ML SYRINGE SQ SCH (07:22)
[2018-09-29 07:44] LABS: Basophils % (A) 0 %; Eosinophils # (A) 0.3 k/uL (0-0.7); Eosinophils % (A) 4 %; HCT 33.3 % (39.0-53.0); HGB 11.2 gm/dL (13.0-17.5); Lymphocytes # (A) 1.5 k/uL (1.0-4.8); Lymphocytes % (A) 19 %; MCH 30.5 pg (25.0-35.0); MCHC 33.5 g/dL (31.0-37.0); MCV 90.9 fL (80.0-100.0); Mean Platelet Volume 8.1; Monocytes # (A) 0.6 k/uL (0-1.0); Monocytes % (A) 8 %; Neutrophils # (A) 5.1 k/uL (1.3-7.7); Neutrophils % (A) 67 %; Platelet Count 158 k/uL (150-450); RBC 3.67 m/uL (4.30-5.90); RDW 14.7 % (11.5-15.5); WBC 7.7 k/uL (3.8-10.6)
[2018-09-29 07:59] LABS: Calcium 8.2 mg/dL (8.4-10.2); Potassium 3.8 mmol/L (3.5-5.1)
--- NOTE | 2018-09-29 08:14 | P.PN ---
Progress Note - Text Progress Note Date: 09/29/18 The patient is afebrile. He says that he will be eventually transferred to a rehab facility due to his frequent falls at home. Prior to his admission he said that he was voiding every 2-3 hours during the day and at least 2 or 3 times at night. He says he occasionally had sensations of incomplete bladder emptying. Urine culture at the time of admission is growing a gram-negative raiza. His catheter is draining relatively clear urine. I told him that the catheter should remain in place until early next week. If he is transferred to the [facility] they could remove the catheter Thursday morning and check a postvoid residual later in the day. I could see the patient back in the office later in the week. He should be discharged on an antibiotic once his culture and sensitivity have been finalized.
--- NOTE | 2018-09-29 10:51 | P.PN ---
Subjective Progress Note Date: 09/29/18 Atif Moreno is an 82 yo M with PMH significant for spinal stenosis, osteoporosis, recurrent falls, CKD3, prostate cancer s/p TURP who presented to [facility] ED after a fall at home. He states he was transferring from his walker when he lost balance and fell backward, landing on his pelvis and R hip. He had to crawl for a few mins to his alert device and then was able to contact EMS. In the ED, vitals stable, leukocytosis to 12.4 with CRP 24 and Cr 1.5. Pt notes that at baseline he lives alone in a trailer, his is currently at [facility]. Daughters visit and he showers at a daughter's house approx once per week. He was being treated for a UTI with keflex outpatient. He denies fevers, chills, dysuria. Was seen in the ED for a fall at home just a few weeks ago. 09/28/2018 maintained on IV antibiotics of Levaquin. afebrile, preliminary urine and blood cultures pending. Voided 100ml, post void residual 360. Labs pending. Evaluated by PT and subacute rehab recommended at discharge.VSS, maintaining O2 sats in the mid 90s on room air. Denies any chest pain, palpitations or increased shortness of breath. Denies any lightheadedness, dizziness or focal deficits. 09/29/2018 urinary retention yesterday with high postvoid residuals, frequency. Difficult straight cath in a patient with history of prostate cancer, TURP, possible strictures. Urology consulted, nj catheter placed. Urine culture growing gram-negative bacilli. Nj catheter with yellow urine, sediment present. Renal function improving, creatinine down to 1.39 .maintained on Levaquin .Afebrile, T-max 99, WBC normal. Blood cultures negative at 24 hours. Borderline hypotension, currently on beta jc. Reports right hip pain better, has not required any pain medication yet this morning. Good diet intake with no nausea vomiting or diarrhea. Objective - Vital Signs Vital signs: Vital Signs Temp 98 F 09/29/18 07:00 Pulse 85 09/29/18 07:00 Resp 16 09/29/18 07:30 BP 90/52 09/29/18 07:00 Pulse Ox 98 09/29/18 07:00 Intake & Output 09/28/18 09/29/18 09/29/18 18:59 06:59 18:59 Intake Total 436 486 Output Total 100 150 Balance 336 336 Intake: Intake, IV Titration 200 Amount Sodium Chloride 0.9% 1, 200 000 ml @ 20 mls/hr IV . Q24H [facility] Rx#:[id number] Oral 436 286 Output: Urine 100 150 Other: Voiding Method Urinal Indwelling Catheter Indwelling Catheter Diaper - Exam General: thin, cachectic, NAD. Eyes: PERRL, EOMI, conjunctiva normal. HENT: normocephalic, mucus membranes moist Neck: supple, no JVD Lungs: normal respiratory effort, no wheezes or rales, no rhonchi CV: Regular rate and rhythm, no murmur. Peripheral pulses 2+ Abdomen: soft, nondistended, no organomegaly Lymph: no cervical or axillary LAD Skin: warm and dry. Bruising around bilateral arms Neuro: A&Ox3, normal mood and affect - Labs CBC & Chem 7: 09/29/18 06:44 09/29/18 06:44 Labs: Abnormal Lab Results - Last 24 Hours (Table) 09/28/18 09/28/18 09/29/18 Range/Units 13:06 13:06 06:44 RBC 3.71 L 3.67 L (4.30-5.90) m/uL Hgb 11.4 L 11.2 L (13.0-17.5) gm/dL Hct 34.3 L 33.3 L (39.0-53.0) % BUN 26 H (9-20) mg/dL Creatinine 1.45 H (0.66-1.25) mg/dL Calcium (8.4-10.2) mg/dL 09/29/18 Range/Units 06:44 RBC (4.30-5.90) m/uL Hgb (13.0-17.5) gm/dL Hct (39.0-53.0) % BUN 26 H (9-20) mg/dL Creatinine 1.39 H (0.66-1.25) mg/dL Calcium 8.2 L (8.4-10.2) mg/dL Microbiology - Last 24 Hours (Table) 09/27/18 Unknown Urine Culture - Preliminary Urine,Voided Gram Neg Bacilli 09/27/18 16:28 Blood Culture - Preliminary Blood No Growth after 24 hours Assessment and Plan Assessment: (1) Sepsis due to urinary tract infection with gram-negative bacilli Current Visit: Yes Status: Acute Code(s): A41.9 - SEPSIS, UNSPECIFIED ORGANISM; N39.0 - URINARY TRACT INFECTION, SITE NOT SPECIFIED SNOMED Code(s): 037199103 (2) Protein-calorie malnutrition, moderate Current Visit: Yes Status: Acute Code(s): E44.0 - MODERATE PROTEIN-CALORIE MALNUTRITION SNOMED Code(s): 978000383 (3) Frequent falls Current Visit: Yes Status: Acute Code(s): R29.6 - REPEATED FALLS SNOMED Code(s): 301475213 (4) S/P TURP (transurethral resection of prostate) Current Visit: Yes Status: Acute Code(s): Z90.79 - ACQUIRED ABSENCE OF OTHER GENITAL ORGAN(S) SNOMED Code(s): 705601928 (5) Lumbar radiculopathy Current Visit: Yes Status: Acute Code(s): M54.16 - RADICULOPATHY, LUMBAR REGION SNOMED Code(s): 964193374 (6) Low back pain Current Visit: No Status: Acute Code(s): M54.5 - LOW BACK PAIN SNOMED Code(s): 833936351 (7 urinary retention possibly acute on chronic, the patient with history of TURP, possible strictures. Nj placed by urology. Plan: Continue on current medication regime ,monitoring and symptomatic treatment. continue on IV antibiotics of Levaquin. Follow urine and blood cultures closely. Discharge planning in progress for Thursday to [facility] subacute rehab. The impression and plan of care has been dictated as directed. : I performed a history and examination of this patient, discussed the same with the dictator. I agree with the dictator's note ,documented as a scribe. Any additional findings or plans will be noted.
[2018-09-29] MEDS: HYDROcodone/APAP 5-325MG 1 EACH TAB PO PRN ×2 (11:06→20:00)
[2018-09-29] MEDS ORDERED: LEVOFLOXACIN 750MG-D5W PMX 750 MG in DEXTROSE/WATER 1 150ML.BAG IVPB SCH (16:00)
[2018-09-29] MEDS: METOPROLOL TARTRATE 25 MG TAB PO SCH (19:59)
[2018-09-30] MEDS: SODIUM CHLORIDE 0.9% 1,000 ML IV SCH (04:39)
[2018-09-30] MEDS: HYDROcodone/APAP 5-325MG 1 EACH TAB PO PRN ×3 (04:40→22:08)
[2018-09-30] MEDS: CYANOCOBALAMIN 500 MCG TAB PO SCH (07:37)
[2018-09-30] MEDS: ENOXAPARIN 40 MG/0.4 ML SYRINGE SQ SCH (07:38)
[2018-09-30] MEDS: TAMSULOSIN 0.4 MG CAP.ER.24H PO SCH (07:38)
[2018-09-30] MEDS: ASPIRIN 81 MG PO SCH (07:38)
[2018-09-30] MEDS: MULTIVITAMINS, THERA 1 EACH TAB PO SCH (07:38)
[2018-09-30 08:37] LABS: Calcium 8.2 mg/dL (8.4-10.2)
--- NOTE | 2018-09-30 15:08 | P.PN ---
Subjective Progress Note Date: 09/30/18 Atif Moreno is an 82 yo M with PMH significant for spinal stenosis, osteoporosis, recurrent falls, CKD3, prostate cancer s/p TURP who presented to [facility] ED after a fall at home. He states he was transferring from his walker when he lost balance and fell backward, landing on his pelvis and R hip. He had to crawl for a few mins to his alert device and then was able to contact EMS. In the ED, vitals stable, leukocytosis to 12.4 with CRP 24 and Cr 1.5. Pt notes that at baseline he lives alone in a trailer, his is currently at [facility]. Daughters visit and he showers at a daughter's house approx once per week. He was being treated for a UTI with keflex outpatient. He denies fevers, chills, dysuria. Was seen in the ED for a fall at home just a few weeks ago. 09/28/2018 maintained on IV antibiotics of Levaquin. afebrile, preliminary urine and blood cultures pending. Voided 100ml, post void residual 360. Labs pending. Evaluated by PT and subacute rehab recommended at discharge.VSS, maintaining O2 sats in the mid 90s on room air. Denies any chest pain, palpitations or increased shortness of breath. Denies any lightheadedness, dizziness or focal deficits. 09/29/2018 urinary retention yesterday with high postvoid residuals, frequency. Difficult straight cath in a patient with history of prostate cancer, TURP, possible strictures. Urology consulted, nj catheter placed. Urine culture growing gram-negative bacilli. Nj catheter with yellow urine, sediment present. Renal function improving, creatinine down to 1.39 .maintained on Levaquin .Afebrile, T-max 99, WBC normal. Blood cultures negative at 24 hours. Borderline hypotension, currently on beta jc. Reports right hip pain better, has not required any pain medication yet this morning. Good diet intake with no nausea vomiting or diarrhea. 09/30/2018 maintained on IV antibiotics. Reports 1 episode of diarrhea last night, no further episodes. Denies abdominal pain. Afebrile, creatinine continues to trend down to 1.29. Urine culture reporting pseudomonas aeruginosa, resistant to Cipro. Levaquin discontinued, Zosyn initiated. Objective - Vital Signs Vital signs: Vital Signs Temp 98.2 F 09/30/18 14:17 Pulse 76 09/30/18 14:17 Resp 16 09/30/18 14:17 BP 97/55 09/30/18 14:17 Pulse Ox 95 09/30/18 14:17 Intake & Output 09/29/18 09/30/18 09/30/18 18:59 06:59 18:59 Intake Total 180 120 Output Total 500 550 Balance -320 -550 120 Intake: Oral 180 120 Output: Urine 500 550 Other: Voiding Method Indwelling Catheter Indwelling Catheter Indwelling Catheter # Bowel Movements 1 - Exam General: thin, cachectic, NAD. Eyes: PERRL, EOMI, conjunctiva normal. HENT: normocephalic, mucus membranes moist Neck: supple, no JVD Lungs: normal respiratory effort, no wheezes or rales, no rhonchi CV: Regular rate and rhythm, no murmur. Peripheral pulses 2+ Abdomen: soft, nondistended, no organomegaly Lymph: no cervical or axillary LAD Skin: warm and dry. Bruising around bilateral arms Neuro: A&Ox3, normal mood and affect - Labs CBC & Chem 7: 09/29/18 06:44 09/30/18 07:42 Labs: Abnormal Lab Results - Last 24 Hours (Table) 09/30/18 Range/Units 07:42 BUN 23 H (9-20) mg/dL Creatinine 1.29 H (0.66-1.25) mg/dL Calcium 8.2 L (8.4-10.2) mg/dL Microbiology - Last 24 Hours (Table) 09/27/18 Unknown Urine Culture - Final Urine,Voided Pseudomonas aeruginosa 09/27/18 16:28 Blood Culture - Preliminary Blood No Growth after 48 hours Assessment and Plan Assessment: (1) Sepsis due to urinary tract infection with pseudomonas aeruginosa Current Visit: Yes Status: Acute Code(s): A41.9 - SEPSIS, UNSPECIFIED ORGANISM; N39.0 - URINARY TRACT INFECTION, SITE NOT SPECIFIED SNOMED Code(s): 963695833 (2) Protein-calorie malnutrition, moderate Current Visit: Yes Status: Acute Code(s): E44.0 - MODERATE PROTEIN-CALORIE MALNUTRITION SNOMED Code(s): 772795575 (3) Frequent falls Current Visit: Yes Status: Acute Code(s): R29.6 - REPEATED FALLS SNOMED Code(s): 899464132 (4) S/P TURP (transurethral resection of prostate) Current Visit: Yes Status: Acute Code(s): Z90.79 - ACQUIRED ABSENCE OF OTHER GENITAL ORGAN(S) SNOMED Code(s): 553549774 (5) Lumbar radiculopathy Current Visit: Yes Status: Acute Code(s): M54.16 - RADICULOPATHY, LUMBAR REGION SNOMED Code(s): 296253784 (6) Low back pain Current Visit: No Status: Acute Code(s): M54.5 - LOW BACK PAIN SNOMED Code(s): 362781630 (7 urinary retention possibly acute on chronic, the patient with history of TURP, possible strictures. Nj placed by urology. Plan: Continue on current medication regime ,monitoring and symptomatic treatment. Pseudomonas aeruginosa resistant to Cipro, antibiotics further adjusted, converted to Zosyn. Follow blood cultures closely. PT/OT daily. Dementia screening in progress. Discharge planning in progress for Thursday to [facility] subacute rehab. The impression and plan of care has been dictated as directed. : I performed a history and examination of this patient, discussed the same with the dictator. I agree with the dictator's note ,documented as a scribe. Any additional findings or plans will be noted.
[2018-09-30] MEDS: PIPERACILLIN-TAZOBACTAM 3.375 GM in SODIUM CHLORIDE 0.9% 100 ML IVPB SCH (15:58)
[2018-09-30] MEDS: METOPROLOL TARTRATE 25 MG TAB PO SCH (22:08)
[2018-10-01] MEDS: PIPERACILLIN-TAZOBACTAM 3.375 GM in SODIUM CHLORIDE 0.9% 100 ML IVPB SCH ×3 (00:04→18:29)
[2018-10-01] MEDS: SODIUM CHLORIDE 0.9% 1,000 ML IV SCH (04:19)
[2018-10-01] MEDS: ENOXAPARIN 40 MG/0.4 ML SYRINGE SQ SCH (09:05)
[2018-10-01] MEDS: CYANOCOBALAMIN 500 MCG TAB PO SCH (09:05)
[2018-10-01] MEDS: ASPIRIN 81 MG PO SCH (09:05)
[2018-10-01] MEDS: MULTIVITAMINS, THERA 1 EACH TAB PO SCH (09:05)
[2018-10-01] MEDS: TAMSULOSIN 0.4 MG CAP.ER.24H PO SCH (09:05)
[2018-10-01] MEDS: HYDROcodone/APAP 5-325MG 1 EACH TAB PO PRN ×2 (09:07→19:17)
[2018-10-01 09:42] LABS: Calcium 8.2 mg/dL (8.4-10.2); Potassium 3.6 mmol/L (3.5-5.1)
--- NOTE | 2018-10-01 10:29 | P.DS ---
Providers Date of admission: 09/28/18 13:58 Expected date of discharge: 10/01/18 Attending physician: Salvador Riley MD Consults: 09/28/18 13:46 Consult Physician Routine Consulting Provider: Bacilio Coffman Consult Reason/Comments: Urine retention, Turp, Ca Do you want consulting provider notified?: Yes Primary care physician: Maia Osvaldo [facility] Course: Final Diagnoses: (1) Sepsis due to urinary tract infection with pseudomonas aeruginosa Current Visit: Yes Status: Acute Code(s): A41.9 - SEPSIS, UNSPECIFIED ORGANISM; N39.0 - URINARY TRACT INFECTION, SITE NOT SPECIFIED SNOMED Code(s): 844285361 (2) Protein-calorie malnutrition, moderate Current Visit: Yes Status: Acute Code(s): E44.0 - MODERATE PROTEIN-CALORIE MALNUTRITION SNOMED Code(s): 886841723 (3) Frequent falls Current Visit: Yes Status: Acute Code(s): R29.6 - REPEATED FALLS SNOMED Code(s): 828630194 (4) S/P TURP (transurethral resection of prostate) Current Visit: Yes Status: Acute Code(s): Z90.79 - ACQUIRED ABSENCE OF OTHER GENITAL ORGAN(S) SNOMED Code(s): 778288066 (5) Lumbar radiculopathy Current Visit: Yes Status: Acute Code(s): M54.16 - RADICULOPATHY, LUMBAR REGION SNOMED Code(s): 078384834 (6) Low back pain Current Visit: No Status: Acute Code(s): M54.5 - LOW BACK PAIN SNOMED Code(s): 095601699 (7 urinary retention possibly acute on chronic, the patient with history of TURP, possible strictures. Nj placed by urology. Hospital course:Atif Moreno is an 82 yo M with PMH significant for spinal stenosis, osteoporosis, recurrent falls, CKD3, prostate cancer s/p TURP who presented to [facility] ED after a fall at home. He states he was transferring from his walker when he lost balance and fell backward, landing on his pelvis and R hip. He had to crawl for a few mins to his alert device and then was able to contact EMS. In the ED, vitals stable, leukocytosis to 12.4 with CRP 24 and Cr 1.5. Pt notes that at baseline he lives alone in a trailer, his is currently at [facility]. Daughters visit and he showers at a daughter's house approx once per week. He was being treated for a UTI with keflex outpatient. He denies fevers, chills, dysuria. Was seen in the ED for a fall at home just a few weeks ago. 09/28/2018 maintained on IV antibiotics of Levaquin. afebrile, preliminary urine and blood cultures pending. Voided 100ml, post void residual 360. Labs pending. Evaluated by PT and subacute rehab recommended at discharge.VSS, maintaining O2 sats in the mid 90s on room air. Denies any chest pain, palpitations or increased shortness of breath. Denies any lightheadedness, dizziness or focal deficits. 09/29/2018 urinary retention yesterday with high postvoid residuals, frequency. Difficult straight cath in a patient with history of prostate cancer, TURP, possible strictures. Urology consulted, nj catheter placed. Urine culture growing gram-negative bacilli. Nj catheter with yellow urine, sediment present. Renal function improving, creatinine down to 1.39 .maintained on Levaquin .Afebrile, T-max 99, WBC normal. Blood cultures negative at 24 hours. Borderline hypotension, currently on beta jc. Reports right hip pain better, has not required any pain medication yet this morning. Good diet intake with no nausea vomiting or diarrhea. 09/30/2018 maintained on IV antibiotics. Reports 1 episode of diarrhea last night, no further episodes. Denies abdominal pain. Afebrile, creatinine continues to trend down to 1.29. Urine culture reporting pseudomonas aeruginosa, resistant to Cipro. Levaquin discontinued, Zosyn initiated. Reports diarrhea last night, we will obtain culture to rule out C. difficile colitis. Significant clinical improvement. Patient is being discharged to [facility] in stable condition with guarded prognosis. Nj catheter to be removed on Thursday at [facility], post void residual check later on Thursday, with the patient following up with Dr. Coffman, urology later that same week. - Exam General: thin, cachectic, NAD. Lungs: normal respiratory effort, no wheezes or rales, no rhonchi CV: Regular rate and rhythm, no murmur. Peripheral pulses 2+ Abdomen: soft, nondistended, no organomegaly Neuro: A&Ox3, normal mood and affect The impression and plan of care has been dictated as directed. : I performed a history and examination of this patient, discussed the same with the dictator. I agree with the dictator's note ,documented as a scribe. Any additional findings or plans will be noted. Time taken: 35 minutes Patient Condition at Discharge: Stable Plan - Discharge Summary Discharge Rx Participant: Yes New Discharge Prescriptions: New Amoxic-Pot Clav 875-125Mg [Augmentin 875-125] 1 tab PO Q12HR #8 tablet Acetaminophen Tab [Tylenol] 650 mg PO Q6HR PRN tab PRN Reason: Mild Pain Or Fever > 100.5 traMADol HCL [Ultram] 50 mg PO Q6HR PRN 3 Days #12 tab PRN Reason: Pain Continue Multivitamins, Thera [Multivitamin (formulary)] 1 tab PO DAILY Aspirin EC [Ecotrin Low Dose] 81 mg PO DAILY Cyanocobalamin (Vitamin B-12) [Vitamin B-12] 1,000 mcg PO DAILY Metoprolol Tartrate [Lopressor] 12.5 mg PO HS Tamsulosin HCl [Flomax] 0.4 mg PO DAILY Discontinued Cephalexin [Keflex] 500 mg PO Q6HR 7 Days #28 cap Discharge Medication List Aspirin EC [Ecotrin Low Dose] 81 mg PO DAILY 09/21/18 [History] Cyanocobalamin (Vitamin B-12) [Vitamin B-12] 1,000 mcg PO DAILY 09/21/18 [History] Multivitamins, Thera [Multivitamin (formulary)] 1 tab PO DAILY 09/21/18 [History] Metoprolol Tartrate [Lopressor] 12.5 mg PO HS 09/27/18 [History] Tamsulosin HCl [Flomax] 0.4 mg PO DAILY 09/27/18 [History] Acetaminophen Tab [Tylenol] 650 mg PO Q6HR PRN tab 10/01/18 [Rx] Amoxic-Pot Clav 875-125Mg [Augmentin 875-125] 1 tab PO Q12HR #8 tablet 10/01/18 [Rx] traMADol HCL [Ultram] 50 mg PO Q6HR PRN 3 Days #12 tab 10/01/18 [Rx] Follow up Appointment(s)/Referral(s): Maia Riley DO [Primary Care Provider] - 3 Days (After DC from [facility]) Bacilio Coffman MD [STAFF PHYSICIAN] - 1 Week (Please schedule for next week as Nj catheter scheduled to be removed on Thursday) Activity/Diet/Wound Care/Special Instructions: C. diff culture pending. [facility] Nj catheter to be removed on Thursday at [facility], post void residual check later on Thursday, with the patient following up with Dr. Coffman, urology later that same week. Diet: Activity: As tolerated CBC, BMP in 3 days Discharge Disposition: TRANSFER TO SNF/F
[2018-10-01] MEDS: METOPROLOL TARTRATE 25 MG TAB PO SCH (19:17)
[2018-10-02] MEDS: PIPERACILLIN-TAZOBACTAM 3.375 GM in SODIUM CHLORIDE 0.9% 100 ML IVPB SCH ×2 (00:28→08:30)
[2018-10-02] MEDS: SODIUM CHLORIDE 0.9% 1,000 ML IV SCH (04:17)
[2018-10-02 04:18] VITALS: TEMP 98.7
[2018-10-02] MEDS: ASPIRIN 81 MG PO SCH (08:30)
[2018-10-02] MEDS: ENOXAPARIN 40 MG/0.4 ML SYRINGE SQ SCH (08:30)
[2018-10-02] MEDS: CYANOCOBALAMIN 500 MCG TAB PO SCH (08:30)
[2018-10-02] MEDS: MULTIVITAMINS, THERA 1 EACH TAB PO SCH (08:30)
[2018-10-02] MEDS: TAMSULOSIN 0.4 MG CAP.ER.24H PO SCH (08:30)
[2018-10-02 09:07] VITALS: BP 126/78; PULSE 71; RESP 16
== END 2018-10-02 12:39 | DRG 872 ==
LOC: EC 01:23 → 4SSUR 04:03 → OBSVTOIN 09-28 13:58
PROVIDERS: ADMIT Family Medicine; ATTEND Family Medicine
DX: A41.52 Sepsis due to Pseudomonas (principal); E44.0 Moderate protein-calorie malnutrition; N39.0 Urinary tract infection, site not specified; I12.9 Hypertensive chronic kidney disease with stage 1 through stage 4 chronic kidney disease, or unspecified chronic kidney disease; M48.00 Spinal stenosis, site unspecified; M54.16 Radiculopathy, lumbar region; M81.0 Age-related osteoporosis without current pathological fracture; N18.3 Chronic kidney disease, stage 3 (moderate); N40.1 Benign prostatic hyperplasia with lower urinary tract symptoms; R33.8 Other retention of urine; R35.0 Frequency of micturition; R29.6 Repeated falls; M25.551 Pain in right hip; Z91.81 History of falling; W01.0XXA Fall on same level from slipping, tripping and stumbling without subsequent striking against object, initial encounter; Y92.009 Unspecified place in unspecified non-institutional (private) residence as the place of occurrence of the external cause; Z16.23 Resistance to quinolones and fluoroquinolones; Z79.82 Long term (current) use of aspirin; Z79.899 Other long term (current) drug therapy; Z85.46 Personal history of malignant neoplasm of prostate; Z90.79 Acquired absence of other genital organ(s); Z60.2 Problems related to living alone; R19.7 Diarrhea, unspecified
CPT/HCPCS: 36415; 72170; 80048; 80053; 85025; 85027; 86140; 87040; 87077; 87086; 87186; 87324; 96374; 99285

== ENCOUNTER 2018-10-22 13:48 | Emergency (ER) | payer MEDICARE ==
[2018-10-22 13:56] VITALS: BP 107/74; PULSE 75; RESP 18; TEMP 98
[2018-10-22] MEDS ORDERED: PROPARACAINE 0.5% OPHTH DROPS 15 ML BTL LEFT EYE STA (14:05)
[2018-10-22] MEDS ORDERED: GENTAMICIN 0.3% OPHTH DROPS 5 ML BTL LEFT EYE STA (14:29)
--- NOTE | 2018-10-22 14:54 | ED ---
General Adult HPI - General Chief complaint: Eye Problems Stated complaint: LEFT EYE PAIN Time Seen by Provider: 10/22/18 14:04 Source: patient, RN notes reviewed, old records reviewed Mode of arrival: EMS Limitations: physical limitation - History of Present Illness Initial comments: 83-year-old male patient past medical history significant for lens replacement in right eye. Two-view chief complaint of 3 days of left eye burning, tearing. Patient reports that the tearing of his eyes is causing some blurred vision. Patient states that this began insidiously, denies acute onset. Denies any flashes of light, increasing floaters. Patient does have a cataract in this affected eye. Denies any other complaints at this time. Systemic: Pt denies fatigue, fever/chills, rash. Pt denies weakness, night sweats, weight loss. Neuro: Pt denies headache, syncope or pre-syncope. HEENT: Pt denies ocular discharge or irritation, rhinorrhea, pharyngitis or notable lymphadenopathy. Cardiopulmonary: Pt denies chest pain, SOB, heart palpitations, dyspnea on exertion. Abdominal/GI: Pt denies abdominal pain, n/v/d. : Pt denies dysuria, burning w/ urination, frequency/urgency. Denies new onset urinary or bowel incontinence. MSK: Pt denies myalgia, loss of strength or function in extremities. Neuro: Pt denies new onset weakness, paresthesias. - Related Data Home Medications Medication Instructions Recorded Confirmed Aspirin EC [Ecotrin Low Dose] 81 mg PO DAILY 09/21/18 09/27/18 Cyanocobalamin (Vitamin B-12) 1,000 mcg PO DAILY 09/21/18 09/27/18 [Vitamin B-12] Multivitamins, Thera [Multivitamin 1 tab PO DAILY 09/21/18 09/27/18 (formulary)] Metoprolol Tartrate [Lopressor] 12.5 mg PO HS 09/27/18 09/27/18 Tamsulosin HCl [Flomax] 0.4 mg PO DAILY 09/27/18 09/27/18 Previous Rx's Medication Instructions Recorded Acetaminophen Tab [Tylenol] 650 mg PO Q6HR PRN tab 10/01/18 Amoxic-Pot Clav 875-125Mg 1 tab PO Q12HR #8 tablet 10/01/18 [Augmentin 875-125] traMADol HCL [Ultram] 50 mg PO Q6HR PRN 3 Days #12 tab 10/01/18 Gentamicin 0.3% Ophth Soln 2 drops LEFT EYE Q4HR 5 Days #1 10/22/18 [Garamycin 0.3% Ophth Soln] bottle Allergies Allergy/AdvReac Type Severity Reaction Status Date / Time No Known Allergies Allergy Verified 09/27/18 07:32 Review of Systems ROS Statement: Those systems with pertinent positive or pertinent negative responses have been documented in the HPI. ROS Other: All systems not noted in ROS Statement are negative. Past Medical History Past Medical History: Hypertension Additional Past Medical History / Comment(s): Falls, liu lateral broken ribs History of Any Multi-Drug Resistant Organisms: None Reported Past Surgical History: Appendectomy Past Anesthesia/Blood Transfusion Reactions: No Reported Reaction Past Psychological History: No Psychological Hx Reported Smoking Status: Never smoker Past Alcohol Use History: None Reported Past Drug Use History: None Reported - Past Family History Father Family Medical History: No Reported History Additional Family Medical History / Comment(s): young in 50's General Exam - General Exam Comments Initial Comments: Constitutional: NAD, AOX3, Pt has pleasant affect. HEENT: NC/AT, trachea midline, neck supple, no lymphadenopathy. Posterior pharynx non erythematous, without exudates. External ears appear normal, without discharge. Mucous membranes moist. Eyes PERRLA, EOM intact. There is no scleral icterus. No pallor noted. Injection noted to left eye. Tearing noted. Intraocular pressure average 13. Fluorescein stain revealed abrasion over the pupil. Cataract noted. Cardiopulmonary: RRR, no murmurs, rubs or gallops, no JVD noted. Lungs CTAB in anterior and posterior muller. No peripheral edema. Abdominal exam: Abdomen soft and non-distended. Abdomen non-tender to palpation in all 4 quadrants. Bowel sounds active in LLQ. No hepatosplenomegaly. No ecchymosis Neuro: CN II-XII grossly intact. No nuchal rigidity. No raccon eyes, no murphy sign, no hemotympanum. No cervical spinal tenderness. MSK: No posterior calf tenderness bilaterally, homans sign negative bilaterally. Posterior tibialis and radial pulse +2 bilaterally. Sensation intact in upper and lower extremities. Full active ROM in upper and lower extremities, 5/5 stregnth. Limitations: physical limitation Course Vital Signs 10/22/18 13:51 Temperature 98.0 F Pulse Rate 75 Respiratory 18 Rate Blood Pressure 107/74 O2 Sat by Pulse 96 Oximetry Medical Decision Making - Medical Decision Making 83-year-old male patient past medical history significant for lens replacement in right eye. Two-view chief complaint of 3 days of left eye burning, tearing. Patient reports that the tearing of his eyes is causing some blurred vision. Patient states that this began insidiously, denies acute onset. Denies any flashes of light, increasing floaters. Patient does have a cataract in this affected eye. Denies any other complaints at this time. Pt VSS, afebrile. Physical exam displayed: Eyes PERRLA, EOM intact. Injection noted to left eye. Tearing noted. Intraocular pressure average 13. Fluorescein stain revealed abrasion over the pupil. Cataract noted. Patient states that his vision is subjectively better after proparacaine drops, blinking more tears. Patient visual acuity limited secondary to patient not having glasses. Patient administered gentamicin eyedrops will be discharged with prescription for these and close outpatient follow-up with ophthalmology tomorrow. Return precautions discussed. Case discussed with Dr. Robertson. Disposition Clinical Impression: Corneal abrasion Disposition: HOME SELF-CARE Condition: Stable Instructions (If sedation given, give patient instructions): Corneal Abrasion (ED) Additional Instructions: Patient to adhere to previously discussed treatment plan and will take medication(s) as directed. Patient to follow up with PCP in 1-2 days. Patient to return to ED if symptoms do not improve. Take antibiotics as prescribed. Follow-up with noise tester tomorrow, return here if condition worsens. Prescriptions: Gentamicin 0.3% Ophth Soln [Garamycin 0.3% Ophth Soln] 2 drops LEFT EYE Q4HR 5 Days #1 bottle Is patient prescribed a controlled substance at d/c from ED?: No Referrals: Atif Avalos DO [Primary Care Provider] - 1-2 days Jj Nava MD [STAFF PHYSICIAN] - 1-2 days
[2018-10-22] MEDS ORDERED: DIPH,PERTUS(ACELL)TETVAC-LF 0.5 ML VIAL IM ONE (15:02)
== END 2018-10-22 15:42 | disposition home or self-care (01) ==
LOC: EC 13:48
DX: S05.02XA Injury of conjunctiva and corneal abrasion without foreign body, left eye, initial encounter (principal); H26.9 Unspecified cataract; I10 Essential (primary) hypertension; Z79.82 Long term (current) use of aspirin; Z79.899 Other long term (current) drug therapy; Z23 Encounter for immunization; X58.XXXA Exposure to other specified factors, initial encounter
CPT/HCPCS: 90471; 90715; 99284

== ENCOUNTER 2019-02-19 11:11 | Emergency (ER) | payer MEDICARE ==
[2019-02-19 11:23] VITALS: RESP 18; TEMP 98.4
[2019-02-19] MEDS ORDERED: SODIUM CHLORIDE 0.9% 500 ML 500 ML IV STA (11:27)
--- NOTE | 2019-02-19 11:35 | ED ---
General Adult HPI - General Chief complaint: Headache Stated complaint: Headache-Ct scan Time Seen by Provider: 02/19/19 11:19 Source: patient, EMS, RN notes reviewed Mode of arrival: EMS Limitations: no limitations - History of Present Illness Initial comments: Patient is a pleasant 83-year-old male presenting to the emergency Department with complaints of headache. Onset of symptoms was reportedly one week ago. Patient states he did have similar symptoms around a year ago that resolved with medication. Patient states she was given a medication last night of 600 mg and his symptoms have resolved since that time. Patient remained symptom-free. Patient states discomfort was the right frontal region behind the eye. No confusion. No speech from his. No weakness. Patient denies any visual changes. No photophobia. No blurred vision. No eye pain. - Related Data Home Medications Medication Instructions Recorded Confirmed Aspirin EC [Ecotrin Low Dose] 81 mg PO DAILY 09/21/18 09/27/18 Cyanocobalamin (Vitamin B-12) 1,000 mcg PO DAILY 09/21/18 09/27/18 [Vitamin B-12] Multivitamins, Thera [Multivitamin 1 tab PO DAILY 09/21/18 09/27/18 (formulary)] Metoprolol Tartrate [Lopressor] 12.5 mg PO HS 09/27/18 09/27/18 Tamsulosin HCl [Flomax] 0.4 mg PO DAILY 09/27/18 09/27/18 Previous Rx's Medication Instructions Recorded Acetaminophen Tab [Tylenol] 650 mg PO Q6HR PRN tab 10/01/18 Amoxic-Pot Clav 875-125Mg 1 tab PO Q12HR #8 tablet 10/01/18 [Augmentin 875-125] traMADol HCL [Ultram] 50 mg PO Q6HR PRN 3 Days #12 tab 10/01/18 Gentamicin 0.3% Ophth Soln 2 drops LEFT EYE Q4HR 5 Days #1 10/22/18 [Garamycin 0.3% Ophth Soln] bottle Allergies Allergy/AdvReac Type Severity Reaction Status Date / Time No Known Allergies Allergy Verified 09/27/18 07:32 Review of Systems ROS Statement: Those systems with pertinent positive or pertinent negative responses have been documented in the HPI. ROS Other: All systems not noted in ROS Statement are negative. Constitutional: Denies: fever Eyes: Denies: eye pain ENT: Denies: ear pain Respiratory: Denies: cough Cardiovascular: Denies: chest pain Endocrine: Denies: fatigue Gastrointestinal: Denies: abdominal pain Genitourinary: Denies: dysuria Musculoskeletal: Denies: back pain Skin: Denies: rash Neurological: Reports: as per HPI, headache. Denies: weakness, numbness, confusion, vertigo Past Medical History Past Medical History: Hypertension Additional Past Medical History / Comment(s): Falls, liu lateral broken ribs History of Any Multi-Drug Resistant Organisms: None Reported Past Surgical History: Appendectomy Past Anesthesia/Blood Transfusion Reactions: No Reported Reaction Past Psychological History: No Psychological Hx Reported Smoking Status: Never smoker Past Alcohol Use History: None Reported Past Drug Use History: None Reported - Past Family History Father Family Medical History: No Reported History Additional Family Medical History / Comment(s): young in 50's General Exam Limitations: no limitations General appearance: alert, in no apparent distress Head exam: Present: normocephalic, other (No tenderness over the temporal artery) Eye exam: Present: normal appearance, PERRL, EOMI. Absent: nystagmus ENT exam: Present: normal oropharynx Neck exam: Present: normal inspection Respiratory exam: Present: normal lung sounds bilaterally Cardiovascular Exam: Present: regular rate, normal rhythm GI/Abdominal exam: Present: soft. Absent: tenderness Extremities exam: Present: normal inspection Neurological exam: Present: alert, CN II-XII intact. Absent: motor sensory deficit Expanded Neurological exam: Present: protecting the airway Speech: Present: fluid speech Cranial nerves: EOM's Intact: Normal Sensory exam: Upper Extremity Light Touch: Normal, Lower Extremity Light Touch: Normal Motor strength exam: RUE: 5, LUE: 5, RLE: 5, LLE: 5 Eye Response: (4) open spontaneously Motor Response: (6) obeys commands Verbal Response: (5) oriented Psychiatric exam: Present: normal affect, normal mood Skin exam: Present: normal color Course Vital Signs 02/19/19 11:20 Temperature 98.4 F Pulse Rate 78 Respiratory 18 Rate Blood Pressure 123/79 O2 Sat by Pulse 95 Oximetry Medical Decision Making - Medical Decision Making Patient reevaluated and resting comfortably in bed. Patient remained symptom- free. Family is now present and updated on results and plan. Case was discussed with practitioner Kristel who is covering for Dr. Avalos. She will help arrange follow-up and does feel comfortable with discharge. - Lab Data Result diagrams: 02/19/19 11:30 02/19/19 11:30 Lab Results 02/19/19 02/19/19 02/19/19 Range/Units 11:30 11:30 11:30 WBC 9.5 (3.8-10.6) k/uL RBC 4.48 (4.30-5.90) m/uL Hgb 13.1 (13.0-17.5) gm/dL Hct 39.0 (39.0-53.0) % MCV 87.1 (80.0-100.0) fL MCH 29.3 (25.0-35.0) pg MCHC 33.6 (31.0-37.0) g/dL RDW 15.0 (11.5-15.5) % Plt Count 169 (150-450) k/uL Neutrophils % 80 % Lymphocytes % 11 % Monocytes % 7 % Eosinophils % 0 % Basophils % 0 % Neutrophils # 7.6 (1.3-7.7) k/uL Lymphocytes # 1.0 (1.0-4.8) k/uL Monocytes # 0.7 (0-1.0) k/uL Eosinophils # 0.0 (0-0.7) k/uL Basophils # 0.0 (0-0.2) k/uL ESR 16 H (0-15) mm/hr PT 10.5 (9.0-12.0) sec INR 1.0 (<1.2) APTT 24.0 (22.0-30.0) sec Sodium 140 (137-145) mmol/L Potassium 4.5 (3.5-5.1) mmol/L Chloride 110 H (98-107) mmol/L Carbon Dioxide 19 L (22-30) mmol/L Anion Gap 11 mmol/L BUN 35 H (9-20) mg/dL Creatinine 1.35 H (0.66-1.25) mg/dL Est GFR (CKD-EPI)AfAm 55 (>60 ml/min/1.73 sqM) Est GFR (CKD-EPI)NonAf 48 (>60 ml/min/1.73 sqM) Glucose 143 H (74-99) mg/dL Calcium 9.2 (8.4-10.2) mg/dL Total Bilirubin 0.5 (0.2-1.3) mg/dL AST 36 (17-59) U/L ALT 29 (4-49) U/L Alkaline Phosphatase 41 (38-126) U/L Total Protein 7.2 (6.3-8.2) g/dL Albumin 3.8 (3.5-5.0) g/dL - Radiology Data Radiology results: image reviewed (Computed tomography scan the brain shows 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 Consider pituitary tumor or neck adenoma) Disposition Clinical Impression: Pituitary mass Disposition: HOME SELF-CARE Condition: Stable Additional Instructions: Please follow-up Thursday with Dr. Avalos for plan and further evaluation. There'll also be value to follow-up with oncology, number provided. Return for uncontrolled pain, weakness or confusion, worsening symptoms or other concerns. Is patient prescribed a controlled substance at d/c from ED?: No Referrals: Atif Avalos DO [Primary Care Provider] - 1-2 days Flex Garcia MD [STAFF PHYSICIAN] - 1-2 days Time of Disposition: 12:56
[2019-02-19 11:47] LABS: Basophils % (A) 0 %; Eosinophils % (A) 0 %; HGB 13.1 gm/dL (13.0-17.5); Lymphocytes % (A) 11 %; MCH 29.3 pg (25.0-35.0); MCHC 33.6 g/dL (31.0-37.0); MCV 87.1 fL (80.0-100.0); Mean Platelet Volume 8.7; Monocytes # (A) 0.7 k/uL (0-1.0); Monocytes % (A) 7 %; Neutrophils # (A) 7.6 k/uL (1.3-7.7); Neutrophils % (A) 80 %; Platelet Count 169 k/uL (150-450); RBC 4.48 m/uL (4.30-5.90); WBC 9.5 k/uL (3.8-10.6)
[2019-02-19 11:58] LABS: Albumin 3.8 g/dL (3.5-5.0); Calcium 9.2 mg/dL (8.4-10.2); Potassium 4.5 mmol/L (3.5-5.1); Total Bilirubin 0.5 mg/dL (0.2-1.3); Total Protein 7.2 g/dL (6.3-8.2)
[2019-02-19 11:59] LABS: Prothrombin Time 10.5 sec (9.0-12.0)
--- NOTE | 2019-02-19 12:14 | CT ---
EXAMINATION TYPE: CT brain wo con DATE OF EXAM: 02/19/2019 COMPARISON: None HISTORY: 83-year-old male right sided eye pain. Possible head injury. TECHNIQUE: Examination was done in axial plane without intravenous contrast. Coronal and sagittal r econstructions performed. CT DLP: 1099.4 mGycm Automated exposure control for dose reduction was used. FINDINGS: There is no evidence of acute intracranial hemorrhage, acute ischemic changes, or or extra-axial flu id collection. There is no effacement of cerebral sulci or basal subarachnoid cisterns. There is no hydrocephalus. There is no midline shift. Conrad-white matter distinction is preserved. Sellar mass measuring 1.6 x 1.2 x 1.2 cm abutting the undersurface of the optic chiasm. This appears relatively centered within the sella with suprasellar extension. There is some thinning of the anteri or wall of the sella. Mild generalized supratentorial volume loss. Moderate patchy white matter hypodensities in both cereb ral hemispheres. Hypoplastic left mastoid air cells. Paranasal sinuses well pneumatized. Orbits and globes appear inta ct. IMPRESSION: 1. 1.6 x 1.2 x 1.2 cm sellar mass has suprasellar extension, abutting the undersurface of the optic c hiasm. 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 Consider further evaluation with contr ast enhanced MRI brain and MRI pituitary. 2. Mild generalized atrophy and moderate patchy changes of chronic small vessel ischemic disease.
[2019-02-19 12:37] LABS: Erythrocyte Sedimentation Rate 16 mm/hr (0-15)
[2019-02-19 13:11] VITALS: BP 123/74; PULSE 72
== END 2019-02-19 13:11 | disposition home or self-care (01) ==
LOC: EC 11:11
DX: E23.6 Other disorders of pituitary gland (principal); R51 Headache; I10 Essential (primary) hypertension; Z79.82 Long term (current) use of aspirin; Z79.899 Other long term (current) drug therapy
CPT/HCPCS: 36415; 70450; 80053; 85025; 85610; 85652; 85730; 96360; 99284

== ENCOUNTER 2019-03-06 11:49 | Emergency (ER) | payer MEDICARE, OTHER ==
[2019-03-06 12:00] VITALS: PULSE 74; TEMP 98.3
--- NOTE | 2019-03-06 13:31 | XR ---
EXAMINATION TYPE: XR chest 2V DATE OF EXAM: 03/06/2019 HISTORY: cough. REFERENCE: NONE. FINDINGS: There are patchy opacities in the right lung peripherally and also in the left infrahilar r egion. The heart is not enlarged. Pleural space are clear. IMPRESSION: PATCHY OPACITIES DESCRIBED MAY REPRESENT PNEUMONIA.
[2019-03-06] MEDS ORDERED: AZITHROMYCIN 500 MG TAB PO STA (13:52)
[2019-03-06 13:56] LABS: HCT 38.8 % (39.0-53.0); MCH 29.6 pg (25.0-35.0); MCHC 33.5 g/dL (31.0-37.0); MCV 88.4 fL (80.0-100.0); Mean Platelet Volume 8.7; Platelet Count 135 k/uL (150-450); RBC 4.39 m/uL (4.30-5.90); RDW 15.3 % (11.5-15.5); WBC 5.7 k/uL (3.8-10.6)
[2019-03-06 14:03] LABS: Albumin 3.6 g/dL (3.5-5.0); Calcium 8.9 mg/dL (8.4-10.2); Potassium 4.4 mmol/L (3.5-5.1); Total Bilirubin 0.7 mg/dL (0.2-1.3); Total Protein 6.8 g/dL (6.3-8.2)
[2019-03-06 14:14] LABS: Basophils # (M) 0.11 k/uL (0-0.2); Lymphocytes # (M) 1.71 k/uL (1.0-4.8); Monocytes # (M) 0.29 k/uL (0-1.0); Neutrophils # (M) 3.59 k/uL (1.3-7.7); Neutrophils % (M) 63 %; Nucleated Red Blood Cells 0 /100 WBC (0-0); Total Cells Counted 100
[2019-03-06] MEDS ORDERED: cefTRIAXone IN SWFI 1,000 MG/10 ML SYRINGE IVP STA (14:17)
--- NOTE | 2019-03-06 14:22 | ED ---
General Adult HPI - General Source: patient, EMS, RN notes reviewed, old records reviewed Mode of arrival: EMS Limitations: no limitations <Tico Lawson - Last Filed: 03/06/19 14:18> <Priscilla Daniel - Last Filed: 03/09/19 21:34> - General Chief complaint: Nausea/Vomiting/Diarrhea Stated complaint: Cough Time Seen by Provider: 03/06/19 12:29 - History of Present Illness Initial comments: 83-year-old male patient presents to ED for chief complaint of cough, vomiting. Patient reportedly has been coughing for approximately one week. Today after eating a large breakfast he began coughing again and did have an episode of nausea and vomiting. Patient denies any complaints at this time. Denies any abdominal pain. Denies any other complaints. Denies any fevers or chills. Systemic: Pt denies fatigue, fever/chills, rash. Pt denies weakness, night sweats, weight loss. Neuro: Pt denies headache, visual disturbances, syncope or pre-syncope. HEENT: Pt denies ocular discharge or irritation, otalgia, rhinorrhea, pharyngitis or notable lymphadenopathy. Cardiopulmonary: Pt denies chest pain, SOB, heart palpitations, dyspnea on exertion. Abdominal/GI: Pt denies abdominal pain, n/v/d. : Pt denies dysuria, burning w/ urination, frequency/urgency. Denies new onset urinary or bowel incontinence. MSK: Pt denies myalgia, loss of strength or function in extremities. Neuro: Pt denies new onset weakness, paresthesias. (Tico Lawson) - Related Data Home Medications Medication Instructions Recorded Confirmed Aspirin EC [Ecotrin Low Dose] 81 mg PO DAILY 09/21/18 09/27/18 Cyanocobalamin (Vitamin B-12) 1,000 mcg PO DAILY 09/21/18 09/27/18 [Vitamin B-12] Multivitamins, Thera [Multivitamin 1 tab PO DAILY 09/21/18 09/27/18 (formulary)] Metoprolol Tartrate [Lopressor] 12.5 mg PO HS 09/27/18 09/27/18 Tamsulosin HCl [Flomax] 0.4 mg PO DAILY 09/27/18 09/27/18 Previous Rx's Medication Instructions Recorded Acetaminophen Tab [Tylenol] 650 mg PO Q6HR PRN tab 10/01/18 Amoxic-Pot Clav 875-125Mg 1 tab PO Q12HR #8 tablet 10/01/18 [Augmentin 875-125] traMADol HCL [Ultram] 50 mg PO Q6HR PRN 3 Days #12 tab 10/01/18 Gentamicin 0.3% Ophth Soln 2 drops LEFT EYE Q4HR 5 Days #1 10/22/18 [Garamycin 0.3% Ophth Soln] bottle Amoxicillin/Potassium Clav 1 each PO Q12HR 10 Days #20 tab 03/06/19 [Augmentin 875-125 Tablet] metroNIDAZOLE [Flagyl] 500 mg PO BID 10 Days #20 tab 03/06/19 Allergies Allergy/AdvReac Type Severity Reaction Status Date / Time No Known Allergies Allergy Verified 03/06/19 11:57 Review of Systems ROS Other: All systems not noted in ROS Statement are negative. <Tico Lawson - Last Filed: 03/06/19 14:18> ROS Other: All systems not noted in ROS Statement are negative. <Priscilla Daniel - Last Filed: 03/09/19 21:34> ROS Statement: Those systems with pertinent positive or pertinent negative responses have been documented in the HPI. Past Medical History Past Medical History: Hypertension Additional Past Medical History / Comment(s): Falls, liu lateral broken ribs History of Any Multi-Drug Resistant Organisms: None Reported Past Surgical History: Appendectomy Past Anesthesia/Blood Transfusion Reactions: No Reported Reaction Past Psychological History: No Psychological Hx Reported Smoking Status: Never smoker Past Alcohol Use History: None Reported Past Drug Use History: None Reported - Past Family History Father Family Medical History: No Reported History Additional Family Medical History / Comment(s): young in 50's <Tico Lawson - Last Filed: 03/06/19 14:18> General Exam Limitations: no limitations <Tico Lawson - Last Filed: 03/06/19 14:18> - General Exam Comments Initial Comments: Constitutional: NAD, AOX3, Pt has pleasant affect. HEENT: NC/AT, trachea midline, neck supple, no lymphadenopathy. Posterior pharynx non erythematous, without exudates. External ears appear normal, without discharge. Mucous membranes moist. Eyes PERRLA, EOM intact. There is no scleral icterus. No pallor noted. Cardiopulmonary: RRR, no murmurs, rubs or gallops, no JVD noted. Lungs CTAB in anterior and posterior muller. No peripheral edema. Abdominal exam: Abdomen soft and non-distended. Abdomen non-tender to palpation in all 4 quadrants. Bowel sounds active in LLQ. No hepatosplenomegaly. No ecchymosis Neuro: CN II-XII grossly intact. No nuchal rigidity. No raccon eyes, no murphy sign, no hemotympanum. No cervical spinal tenderness. MSK: No posterior calf tenderness bilaterally, homans sign negative bilaterally. Posterior tibialis and radial pulse +2 bilaterally. Sensation intact in upper and lower extremities. Full active ROM in upper and lower extremities, 5/5 stregnth. (Tico Lawson) Course Vital Signs 03/06/19 03/06/19 11:57 14:33 Temperature 98.3 F Pulse Rate 74 74 Respiratory 18 16 Rate Blood Pressure 135/99 120/78 O2 Sat by Pulse 96 94 L Oximetry Medical Decision Making - Lab Data Result diagrams: 03/06/19 13:00 03/06/19 13:00 <Tico Lawson - Last Filed: 03/06/19 14:18> - Lab Data Result diagrams: 03/06/19 13:00 03/06/19 13:00 <Priscilla Daniel - Last Filed: 03/09/19 21:34> - Medical Decision Making 83-year-old male patient presents to ED for chief complaint of cough, vomiting. Patient reportedly has been coughing for approximately one week. Today after eating a large breakfast he began coughing again and did have an episode of nausea and vomiting. Patient denies any complaints at this time. Denies any abdominal pain. Denies any other complaints. Denies any fevers or chills. Patient vital signs are stable, afebrile. Abdomen is soft, nontender. Lungs are clear to auscultation. Laboratory investigations were obtained and revealed no safety change from baseline. Chest x-ray was obtained and revealed patchy opacities which may represent pneumonia. Patient does have some concern for possible aspiration. Patient will be covered with Augmentin and Flagyl. Patient will follow up with [facility] outpatient basis for swallow study. Case di scussed in depth with Dr. Daniel. (Tico Lawson) I was available for consultation in the emergency department. The history and physical exam were done by the midlevel provider. I was consulted for this patients care. I reviewed the case with the midlevel provider and based on their presentation of the patient, I agree with the assessment, medical decision making and plan of care as documented. Chart was dictated using [employer] dictation software. Attempts were made to correct any dictation errors however some typographical errors may persist. (Priscilla Daniel) - Lab Data Lab Results 03/06/19 03/06/19 03/06/19 Range/Units 13:00 13:00 13:00 WBC 5.7 (3.8-10.6) k/uL RBC 4.39 (4.30-5.90) m/uL Hgb 13.0 (13.0-17.5) gm/dL Hct 38.8 L (39.0-53.0) % MCV 88.4 (80.0-100.0) fL MCH 29.6 (25.0-35.0) pg MCHC 33.5 (31.0-37.0) g/dL RDW 15.3 (11.5-15.5) % Plt Count 135 L (150-450) k/uL Neutrophils % (Manual) 63 % Lymphocytes % (Manual) 30 % Monocytes % (Manual) 5 % Basophils % (Manual) 2 % Neutrophils # (Manual) 3.59 (1.3-7.7) k/uL Lymphocytes # (Manual) 1.71 (1.0-4.8) k/uL Monocytes # (Manual) 0.29 (0-1.0) k/uL Basophils # (Manual) 0.11 (0-0.2) k/uL Nucleated RBCs 0 (0-0) /100 WBC Manual Slide Review Performed Sodium 139 (137-145) mmol/L Potassium 4.4 (3.5-5.1) mmol/L Chloride 109 H (98-107) mmol/L Carbon Dioxide 25 (22-30) mmol/L Anion Gap 5 mmol/L BUN 27 H (9-20) mg/dL Creatinine 1.28 H (0.66-1.25) mg/dL Est GFR (CKD-EPI)AfAm 59 (>60 ml/min/1.73 sqM) Est GFR (CKD-EPI)NonAf 51 (>60 ml/min/1.73 sqM) Glucose 86 (74-99) mg/dL Plasma Lactic Acid Bay 1.0 (0.7-2.0) mmol/L Calcium 8.9 (8.4-10.2) mg/dL Total Bilirubin 0.7 (0.2-1.3) mg/dL AST 46 (17-59) U/L ALT 48 (4-49) U/L Alkaline Phosphatase 41 (38-126) U/L Total Protein 6.8 (6.3-8.2) g/dL Albumin 3.6 (3.5-5.0) g/dL Influenza Type A RNA (Not Detectd) Influenza Type B (PCR) (Not Detectd) 03/06/19 Range/Units 13:22 WBC (3.8-10.6) k/uL RBC (4.30-5.90) m/uL Hgb (13.0-17.5) gm/dL Hct (39.0-53.0) % MCV (80.0-100.0) fL MCH (25.0-35.0) pg MCHC (31.0-37.0) g/dL RDW (11.5-15.5) % Plt Count (150-450) k/uL Neutrophils % (Manual) % Lymphocytes % (Manual) % Monocytes % (Manual) % Basophils % (Manual) % Neutrophils # (Manual) (1.3-7.7) k/uL Lymphocytes # (Manual) (1.0-4.8) k/uL Monocytes # (Manual) (0-1.0) k/uL Basophils # (Manual) (0-0.2) k/uL Nucleated RBCs (0-0) /100 WBC Manual Slide Review Sodium (137-145) mmol/L Potassium (3.5-5.1) mmol/L Chloride (98-107) mmol/L Carbon Dioxide (22-30) mmol/L Anion Gap mmol/L BUN (9-20) mg/dL Creatinine (0.66-1.25) mg/dL Est GFR (CKD-EPI)AfAm (>60 ml/min/1.73 sqM) Est GFR (CKD-EPI)NonAf (>60 ml/min/1.73 sqM) Glucose (74-99) mg/dL Plasma Lactic Acid Bay (0.7-2.0) mmol/L Calcium (8.4-10.2) mg/dL Total Bilirubin (0.2-1.3) mg/dL AST (17-59) U/L ALT (4-49) U/L Alkaline Phosphatase (38-126) U/L Total Protein (6.3-8.2) g/dL Albumin (3.5-5.0) g/dL Influenza Type A RNA Not Detected (Not Detectd) Influenza Type B (PCR) Not Detected (Not Detectd) Disposition Is patient prescribed a controlled substance at d/c from ED?: No <Tico Lawson - Last Filed: 03/06/19 14:18> <Priscilla Daniel - Last Filed: 03/09/19 21:34> Clinical Impression: Pneumonia Disposition: HOME SELF-CARE Condition: Stable Instructions (If sedation given, give patient instructions): Aspiration Pneumonia (DC), Pneumonia (ED) Additional Instructions: Take antibiotics as directed. Follow-up with primary care provider tomorrow. Follow-up with GI consult for outpatient swallow study. Return to ER immediately if condition worsens in any way. Prescriptions: Amoxicillin/Potassium Clav [Augmentin 875-125 Tablet] 1 each PO Q12HR 10 Days #20 tab metroNIDAZOLE [Flagyl] 500 mg PO BID 10 Days #20 tab Referrals: Ryan Hunt MD [Primary Care Provider] - 1-2 days Henri Rahman MD [STAFF PHYSICIAN] - 1-2 days
[2019-03-06 14:34] VITALS: BP 120/78; RESP 16
== END 2019-03-06 14:35 | disposition home or self-care (01) ==
LOC: EC 11:49
DX: J18.9 Pneumonia, unspecified organism (principal); R11.2 Nausea with vomiting, unspecified; R19.7 Diarrhea, unspecified; I10 Essential (primary) hypertension; Z79.82 Long term (current) use of aspirin; Z79.899 Other long term (current) drug therapy
CPT/HCPCS: 36415; 80053; 83605; 85025; 87502; 71046; 99284; 96374; J0696